=== PATIENT | male | born 1950 | race Caucasian/White ===

== ENCOUNTER 2018-02-25 07:41 | Day surgery (SDC) | payer BC ==
[~2018-02-25] VITALS: Ht 172.7 cm; Wt 86.2 kg
[~2018-02-25 07:41] MED LIST: B COMPLE2 PO; COQ-10100 M1 PO; FENOFIBRATE145 MG PO; FISH OIL1000 MG PO; FOLIC ACID1 MG PO; LOVASTATIN40 M1 PO; MAXZIDE-2537.5 MG/TA PO; MULTI VIT PO; NEXIUM40 M1 PO; PLENDIL PO; SAW PALMETTO1 CAP PO
[2018-02-25] MEDS ORDERED: MOTRIN800 MG PO (11:01)
[2018-02-25] MEDS ORDERED: PERCOCET 5/325M1 TAB PO (11:01)
[2018-02-25 11:21] VITALS: BP 133/82
== END 2018-02-25 11:50 | disposition home or self-care (01) | DRG 585 ==
LOC: ORM 07:41
PROVIDERS: ATTEND Surgery
PROC: 0HBT0ZX Excision of Right Breast, Open Approach, Diagnostic (ICD-10-PCS; principal; 2018-02-25)
DX: N61.1 Abscess of the breast and nipple (principal)

== ENCOUNTER 2018-05-20 06:23 | Day surgery (SDC) | payer BC ==
[~2018-05-20] VITALS: Ht 172.7 cm; Wt 86.2 kg
[~2018-05-20 06:23] MED LIST changes: +MOTRIN800 MG PO; +PERCOCET 5/325M1 TAB PO
[2018-05-20] MEDS ORDERED: PERCOCET 5/325M1 TAB PO (08:21)
[2018-05-20 08:31] VITALS: BP 138/87
== END 2018-05-20 08:45 | disposition home or self-care (01) | DRG 863 ==
LOC: ORM 06:23
PROVIDERS: ATTEND Surgery
PROC: 0H9T0ZZ Drainage of Right Breast, Open Approach (ICD-10-PCS; principal; 2018-05-20)
DX: T81.4XXA Infection following a procedure, initial encounter (principal); N61.1 Abscess of the breast and nipple; I10 Essential (primary) hypertension; E78.00 Pure hypercholesterolemia, unspecified; Y83.8 Other surgical procedures as the cause of abnormal reaction of the patient, or of later complication, without mention of misadventure at the time of the procedure

== ENCOUNTER → 2020-09-12 | Day surgery (SDC) | payer MEDICARE ==
[~2020-09-12] MED LIST changes: +SELENIUM200 MC1 PO; +ZINC50 M1 PO
[2020-09-12 12:16] VITALS: BP 128/72
== END | disposition home or self-care (01) ==
LOC: ORM 07:28
PROVIDERS: ATTEND Surgery
PROC: 0YU64JZ Supplement Left Inguinal Region with Synthetic Substitute, Percutaneous Endoscopic Approach (ICD-10-PCS; principal; 2020-09-12)
DX: K40.90 Unilateral inguinal hernia, without obstruction or gangrene, not specified as recurrent (principal); N64.9 Disorder of breast, unspecified; F17.210 Nicotine dependence, cigarettes, uncomplicated; Z20.822 Contact with and (suspected) exposure to COVID-19
CPT/HCPCS: C1781; J0131; J1100

== ENCOUNTER 2021-01-30 06:52 | Day surgery (SDC) | payer MEDICARE ==
[~2021-01-30] VITALS: Ht 175.3 cm; Wt 86.2 kg
[~2021-01-30 06:52] MED LIST changes: +APAP325 MG PO; +MOTRIN IB200 M1 PO; +[UNRECOGNIZED DRUG - OTHER] PO
[2021-01-30 09:11] VITALS: BP 124/64
== END 2021-01-30 09:00 | disposition home or self-care (01) ==
LOC: ENDO 06:52 → ORM 10:45
PROVIDERS: ATTEND Surgery
PROC: 0DJD8ZZ Inspection of Lower Intestinal Tract, Via Natural or Artificial Opening Endoscopic (ICD-10-PCS; principal; 2021-01-30)
DX: Z12.11 Encounter for screening for malignant neoplasm of colon (principal); K57.30 Diverticulosis of large intestine without perforation or abscess without bleeding; F17.200 Nicotine dependence, unspecified, uncomplicated; Z86.010 Personal history of colon polyps